=== PATIENT | female | born 1985 | race Caucasian/White ===

== ENCOUNTER 2023-11-20 18:27 | Emergency (ER) | payer OTHER ==
--- OUTSIDE RECORDS SUMMARY | 2023-11-20 18:30 | XMS REPORT | Continuity of Care Document ---
Author Name Unknown Address [address] [place] [address] thconnect Address [address] [place] [address] Care Team Providers Care Concession Worker Name Role Phone [email or web address] Attending Clinician Unavaila ble [email or web address] Admitting Clinician Unavaila ble Encounters Start Date/Time End Date/Time Encounter Type Admission Type Attending Clinicians Care Facility Care Department Encounter ID Source 2023-02-12 00:00:00 2023-02-12 00:00:00 Outpatient [email or web address] [facility] [id number] [facility]
[2023-11-20] MEDS ORDERED: FAMOTIDINE 20 MG/2 ML VIAL IV ONE (18:38)
[2023-11-20] MEDS ORDERED: NA CHLORIDE 0.9% 1,000 ML ONE (18:38)
[2023-11-20] MEDS ORDERED: ONDANSETRON 4 MG/2 ML VIAL ONE (18:38)
[2023-11-20 19:06] LABS: Absolute Eosinophils 0.1 K/uL (0-0.5); Absolute Lymphocytes (CBC) 0.8 K/uL (0.7-4.9); Absolute Monocytes 0.7 K/uL (0.1-1.3); Absolute Neutrophil 16.4 K/uL (1.8-8.0); Basophils % 0.3 % (0-1.3); Eosinophils % 0.5 % (0-4.4); Hemoglobin 12.4 g/dL (12.0-15.0); Lymphocytes % 4.3 % (15.3-44.8); MCH 26.9 pg (27.0-35.0); MCHC 32.7 g/dL (32.0-36.0); MCV 82.2 fL (80-100); MPV 7.6 fL (7.6-11.3); Monocytes % 3.7 % (3.3-12.3); Neutrophils % 91.2 % (41.7-73.7); Nucleated Red Blood Cells % 0.1 % (0-0); Platelets 336 thou/uL (152-406); RBC Red Blood Cell Count 4.63 M/uL (3.86-4.86); Red Cell Distribution Width 13.6 % (12.1-15.2)
--- NOTE | 2023-11-20 19:10 | RAD REPORT ---
EXAM DESCRIPTION: RAD - Chest Single View - 11/20/2023 6:56 pm CLINICAL HISTORY: nausea/vomiting Chest pain. COMPARISON: <Comparisons> FINDINGS: Portable technique limits examination quality. The lungs are grossly clear. The heart is normal in size. No displaced fractures. IMPRESSION: No acute intrathoracic process suspected.
[2023-11-20 19:35] LABS: Albumin 3.4 g/dL (3.4-5.0); Albumin/Globulin Ratio 0.9 (1.1-1.8); Anion Gap 14.4 mEq/L (5.0-15.0); Bilirubin Direct 0.2 mg/dL (0-0.2); Bilirubin Indirect, Calculated 0.6 mg/dL (0.2-0.8); Bilirubin Total 0.8 mg/dL (0.2-1.0); Globulin 3.9 g/dL (2.3-3.5); Magnesium 1.2 mg/dL (1.6-2.4); Potassium 3.4 mEq/L (3.5-5.1); Protein, Total 7.3 g/dL (6.4-8.2); Troponin High Sensitivity 13.5 pg/mL (<58.9)
[2023-11-20 19:55] LABS: Blood Morphology Comment NOT SEEN (NOT SEEN); Platelet Estimate ADEQ; White Blood Cell Scan OK (OK)
[2023-11-20] MEDS ORDERED: POTASSIUM 25 MEQ EFFERV TAB ONE (20:01)
[2023-11-20] MEDS ORDERED: Magnesium Sulfate 2gm IVPB 2 G/50 ML BAG IV ONE (20:01)
--- NOTE | 2023-11-20 21:23 | EDPHYS ---
Physician Documentation [facility] Name: Mita Ashby Age: 38 yrs Sex: Female : 1985 Arrival Date: 11/20/2023 Time: 18:27 Bed 6 Private MD: ED Physician Greg Herrera HPI: 11/19 18:35 This 38 yrs old Female presents to ER via EMS with complaints of Nausea/Vomiting. cp 18:35 The patient presents to the emergency department with nausea, vomiting. cp 18:35 Onset: The symptoms/episode began/occurred today. cp 18:35 Possible causes: antibiotics, Augmentin. Associated signs and symptoms: Pertinent cp negatives: abdominal pain, GI bleeding. 18:35 Severity of symptoms: in the emergency department the symptoms are unchanged despite cp EMS interventions. 18:35 EMS reports patient with low blood pressure upon initial assessment, IV started with cp intravenous fluids. 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 - Infectious Disease History:: Denies. - Social history:: Smoking status: Patient denies any tobacco usage or history of. ROS: 18:40 Constitutional: Negative for chills, fever, cp 18:40 Eyes: Negative for injury, pain, redness, and discharge, cp 18:40 Cardiovascular: Negative for chest pain, 18:40 Respiratory: Negative for cough, shortness of breath, wheezing, 18:40 Abdomen/GI: Positive for nausea and vomiting, Negative for abdominal pain, diarrhea, constipation, hematemesis, 18:40 : Negative for urinary symptoms, 18:40 Neuro: Negative for altered mental status, dizziness, headache, loss of consciousness, cp syncope, weakness, 18:40 All other systems are negative, cp Exam: 18:45 Constitutional: The patient appears in no acute distress, alert, awake, cp non-diaphoretic, non-toxic, well developed, well nourished, uncomfortable, 18:45 Head/Face: Normocephalic, atraumatic. cp 18:45 Eyes: Periorbital structures: appear normal, Conjunctiva: normal, no exudate, no injection, Sclera: no appreciated abnormality, 18:45 ENT: External ear(s): are unremarkable, Nose: is normal, Mouth: Lips: moist, Oral mucosa: moist, Posterior pharynx: Airway: no evidence of obstruction, patent, 18:45 Neck: ROM/movement: is normal, is supple, without pain, no range of motions limitations, no meningismus, no nuchal rigidity, 18:45 Chest/axilla: Inspection: normal, 18:45 Cardiovascular: Rate: normal, Rhythm: regular, 18:45 Respiratory: the patient does not display signs of respiratory distress, Respirations: normal, no use of accessory muscles, no retractions, labored breathing, is not present, Breath sounds: are clear throughout, no decreased breath sounds, no stridor, no wheezing, 18:45 Abdomen/GI: Inspection: abdomen appears normal, Bowel sounds: active, all quadrants, Palpation: soft, in all quadrants, nontender, in all quadrants, 18:45 Back: pain, is absent, ROM is normal, 18:45 Neuro: Orientation: to person, place \T\ time. Mentation: is normal, Cerebellar function: is grossly normal, Motor: moves all fours, strength is normal, Sensation: no obvious gross deficits, 19:01 ECG was reviewed by the Attending Physician. cp Vital Signs: 18:31 BP 106 / 95; Pulse 88; Resp 18; Temp 98.3(O); Pulse Ox 100% on R/A; Height 5 ft. 5 in. ld1 ; Pain 0/10; 18:31 Weight 90.72 kg; ld1 18:46 BP 114 / 86; Pulse 87; Resp 18; Pulse Ox 100% on R/A; ld1 20:48 BP 114 / 76; Pulse 79; Pulse Ox 100% on R/A; Pain 0/10; tm6 21:31 BP 109 / 76; Pulse 74; Resp 17; Temp 98.3; Pulse Ox 99% ; Pain 0/10; bm8 18:31 Pain Scale: Adult ld1 20:48 Pain Scale: Adult tm6 21:31 Pain Scale: Adult bm8 Hartman Coma Score: 21:31 Eye Response: spontaneous(4). Motor Response: obeys commands(6). Verbal Response: bm8 oriented(5). Total: 15. MDM: 18:32 Patient medically screened. cp 21:22 Data reviewed: vital signs, nurses notes, lab test result(s), EKG, radiologic studies, cp plain films, and as a result, I will discharge patient. 21:22 Differential diagnosis: Nonspecific abd pain, gastritis, cholecystitis, pancreatitis, cp diverticulitis, viral gastroenteritis, gastroenteritis. I considered the following discharge prescriptions or medication management in the emergency department Medications were administered in the Emergency Department. See MAR. Independent interpretation of the following test(s) in the Emergency Department EKG: See my EKG interpretation above. Test considered but Not performed: CT: abdomen/pelvis. Care significantly affected by the following chronic conditions: Diabetes. Counseling: I had a detailed discussion with the patient and/or guardian regarding the historical points, exam findings, and any diagnostic results supporting the discharge/admit diagnosis, lab results, radiology results, to return to the emergency department if symptoms worsen or persist or if there are any questions or concerns that arise at home. Response to treatment: the patient's symptoms have markedly improved after treatment, and as a result, I will discharge patient. 11/19 18:33 Order name: Basic Metabolic Panel; Complete Time: 19:55 cp 11/19 19:55 Interpretation: Normal except: K 3.4; GLUC 219. cp 11/19 18:33 Order name: CBC with Diff; Complete Time: 19:58 cp 11/19 19:55 Interpretation: Normal except: WBC 18.00; MCH 26.9; XIAO% 91.2; LYM% 4.3; NEUT A 16.4. cp 11/19 18:33 Order name: LFT's; Complete Time: 19:55 cp 11/19 18:33 Order name: Magnesium; Complete Time: 19:55 cp 11/19 18:33 Order name: Troponin HS; Complete Time: 19:55 cp 11/19 18:33 Order name: Lipase; Complete Time: 19:55 cp 11/19 19:56 Order name: CBC Smear Scan; Complete Time: 19:58 EDMS 11/19 18:33 Order name: XRAY Chest (1 view); Complete Time: 19:55 cp 11/19 18:33 Order name: Cardiac monitoring; Complete Time: 18:35 cp 11/19 18:33 Order name: EKG - Nurse/Tech; Complete Time: 18:53 cp 11/19 18:33 Order name: IV Saline Lock; Complete Time: 18:35 cp 08 18:33 Order name: Labs collected and sent; Complete Time: 18:52 cp 0808 18:33 Order name: O2 Per Protocol; Complete Time: 18:35 cp 08 18:33 Order name: O2 Sat Monitoring; Complete Time: 18:35 cp 0808 20:55 Order name: PO challenge; Complete Time: 20:56 cp EC:01 Rate is 91 beats/min. Rhythm is regular. OH interval is normal. QRS interval is normal. cp QT interval is normal. T waves are Inverted in leads III, aVR. Interpreted by me. Reviewed by me. Administered Medications: 18:45 Drug: NS 0.9% IV 1000 ml IV at 1 bolus Per protocol; 1000 mL bolus Route: IV; Rate: 1 ld1 bolus; Site: right antecubital; 18:53 Follow up: Response: No adverse reaction; IV Status: Infusion continued ld1 18:45 Drug: Ondansetron IVP 4 mg IVP once; over 2 minutes Route: IVP; Site: right antecubital;ld1 18:53 Follow up: Response: No adverse reaction; Vomiting decreased ld1 18:45 Drug: Famotidine IVP 20 mg IVP once; dilute with 10 mL 0.9% NaCl; give over 2 minutes ld1 Route: IVP; Site: right antecubital; 18:53 Follow up: Response: No adverse reaction ld1 20:16 Drug: Magnesium Sulfate IVPB 2 grams IVPB once over 2 hrs Route: IVPB; Infused Over: 2 bm8 hrs; Site: right antecubital; 21:29 Follow up: Response: No adverse reaction; IV Status: Completed infusion; IV Intake: [id number] 20:16 Drug: Potassium PO Effervescent Tablet 25 mEq PO once; dissolve in 4 ounces of water or bm8 juice Route: PO; 21:29 Follow up: Response: No adverse reaction bm8 Disposition Summary: 11/20/23 21:23 Discharge Ordered Notes: Location: Home cp Problem: new cp Symptoms: have improved cp Condition: Stable cp Diagnosis - Nausea with vomiting, unspecified cp - Hypomagnesemia cp - Hypokalemia cp - Elevated white blood cell count, unspecified cp Followup: cp - With: Private Physician - When: 1 - 2 days - Reason: Worsening of condition Discharge Instructions: - Discharge Summary Sheet cp - Potassium Content of Foods cp - Hypomagnesemia cp - Nausea and Vomiting, Adult cp - Hypokalemia cp Forms: - Medication Reconciliation Form cp - Antibiotic Education cp - Prescription Opioid Use cp - Patient Portal Instructions cp - Leadership Thank You Letter cp Prescriptions: - Cephalexin 500 mg Oral Capsule - take 1 capsule ORAL route every 8 hours for 10 days; 30 capsule; Refills: 0, cp Product Selection Permitted - Zofran 4 mg Oral Tablet - take 1 tablet ORAL route every 12 hours As needed; 20 tablet; Refills: 0, cp Product Selection Permitted Signatures: Dispatcher [employer] EDMS Fercho Garduno PA PA cp Leighann Banuelos, RN RN ld1 Curt Samson, RN RN bm8 Corrections: (The following items were deleted from the chart) 18:34 18:34 BASIC METABOLIC PANEL+C.LAB.BRZ ordered. EDMS EDMS 18:34 18:34 CBC+H.LAB.BRZ ordered. EDMS EDMS 18:34 18:34 HEPATIC FUNCTION+C.LAB.BRZ ordered. EDMS EDMS 18:34 18:34 MAGNESIUM+C.LAB.BRZ ordered. EDMS EDMS 18:34 18:34 Troponin High Sensitivity+C.LAB.BRZ ordered. EDMS EDMS 18:34 18:34 LIPASE+C.LAB.BRZ ordered. EDMS EDMS 18:34 18:34 Chest Single View+RAD.RAD.BRZ ordered. EDMS EDMS
--- NOTE | 2023-11-20 21:23 | ER ---
Nurse's Notes [facility] Name: Mita Ashby Age: 38 yrs Sex: Female : 1985 Arrival Date: 11/20/2023 Time: 18:27 Bed 6 Private MD: Diagnosis: Nausea with vomiting, unspecified;Hypomagnesemia;Hypokalemia;Elevated white blood cell count, unspecified Presentation: 11/19 18:31 Chief complaint: EMS states: Toned out to patient home. Pt reports N/V X 4 hours. ld1 Denies ABD pain. Reports having sty to eye - took new oral antibiotic today. Coronavirus screen: At this time, the client does not indicate any symptoms associated with coronavirus-19. Ebola Screen: No symptoms or risks identified at this time. Initial Sepsis Screen: Does the patient meet any 2 criteria? RR > 20 per min. Does the patient have a suspected source of infection? No. Patient's initial sepsis screen is negative. Risk Assessment: Do you want to hurt yourself or someone else? Patient reports no desire to harm self or others. Onset of symptoms was November 20, 2023. 18:31 Method Of Arrival: EMS: [facility] ld1 18:31 Acuity: STACIA 3 ld1 Triage Assessment: 18:33 General: Appears in no apparent distress. comfortable, Behavior is calm, cooperative, ld1 appropriate for age. Pain: Denies pain. EENT: No signs and/or symptoms were reported regarding the EENT system. Neuro: Level of Consciousness is awake, alert, obeys commands, Oriented to person, place, time, situation, Appropriate for age. Cardiovascular: Capillary refill < 3 seconds Patient's skin is warm and dry. Respiratory: Airway is patent Respiratory effort is even, unlabored. GI: Abdomen is round non-distended, Reports nausea, vomiting. : No signs and/or symptoms were reported regarding the genitourinary system. Derm: No signs and/or symptoms reported regarding the dermatologic system. Musculoskeletal: No signs and/or symptoms reported regarding the musculoskeletal system. 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 - Infectious Disease History:: Denies. - Social history:: Smoking status: Patient denies any tobacco usage or history of. Screenin:34 [facility] ED Fall Risk Assessment (Adult) History of falling in the last 3 months, ld1 including since admission No falls in past 3 months (0 pts) Confusion or Disorientation No (0 pts) Intoxicated or Sedated No (0 pts) Impaired Gait No (0 pts) Mobility Assist Device Used No (0 pt) Altered Elimination No (0 pt) Score/Fall Risk Level 0 - 2 = Low Risk Oriented to surroundings, Maintained a safe environment, Educated pt \T\ family on fall prevention, incl call for assistance when getting out of bed, Assessed \T\ reinforced patient's understanding of fall precautions, Provided non-skid footwear, Hourly rounding (assess needs \T\ fall precautionary measures) done, Used ambulatory aids as needed (educated on \T\ assisted with), Used gait belt as appropriate. Abuse screen: Denies threats or abuse. Has been threatened or abused. Nutritional screening: No deficits noted. Tuberculosis screening: No symptoms or risk factors identified. Assessment: 18:34 Reassessment: See triage assessment. ld1 20:48 Reassessment: Patient and/or family updated on plan of care and expected duration. Pain tm6 level reassessed. Patient is alert, oriented x 3, equal unlabored respirations, skin warm/dry/pink. 21:31 Reassessment: Patient appears in no apparent distress at this time. Patient and/or bm8 family updated on plan of care and expected duration. Pain level reassessed. Patient is alert, oriented x 3, equal unlabored respirations, skin warm/dry/pink. Patient denies pain at this time. Patient states feeling better. Patient states symptoms have improved. GI: No deficits noted. Abdomen is flat, non-distended, Patient currently denies abdominal pain, nausea, pain, vomiting. Vital Signs: 18:31 BP 106 / 95; Pulse 88; Resp 18; Temp 98.3(O); Pulse Ox 100% on R/A; Height 5 ft. 5 in. ld1 ; Pain 0/10; 18:31 Weight 90.72 kg; ld1 18:46 BP 114 / 86; Pulse 87; Resp 18; Pulse Ox 100% on R/A; ld1 20:48 BP 114 / 76; Pulse 79; Pulse Ox 100% on R/A; Pain 0/10; tm6 21:31 BP 109 / 76; Pulse 74; Resp 17; Temp 98.3; Pulse Ox 99% ; Pain 0/10; bm8 18:31 Pain Scale: Adult ld1 20:48 Pain Scale: Adult tm6 21:31 Pain Scale: Adult bm8 Jeramie Coma Score: 21:31 Eye Response: spontaneous(4). Motor Response: obeys commands(6). Verbal Response: bm8 oriented(5). Total: 15. ED Course: 18:31 Patient arrived in ED. ld1 18:31 Fercho Garduno PA is PHCP. cp 18:31 Greg Herrera MD is Attending Physician. cp 18:33 Triage completed. ld1 18:33 Arm band placed on right wrist. ld1 18:34 Patient has correct armband on for positive identification. Placed in gown. Bed in low ld1 position. Call light in reach. Side rails up X2. awake overnight monitor on. Pulse ox on. NIBP on. Door closed. Noise minimized. Warm blanket given. 18:34 No provider procedures requiring assistance completed. Maintain EMS IV. Dressing ld1 intact. Good blood return noted. Site clean \T\ dry. Gauge \T\ site: 18G RAC. 18:40 Jose Flowers, RN is Primary Nurse. rs5 18:58 XRAY Chest (1 view) In Process Unspecified. EDMS 21:31 Provided Education on: post er care. bm8 21:31 IV discontinued, intact, bleeding controlled, No redness/swelling at site. Pressure bm8 dressing applied. Administered Medications: 18:45 Drug: NS 0.9% IV 1000 ml IV at 1 bolus Per protocol; 1000 mL bolus Route: IV; Rate: 1 ld1 bolus; Site: right antecubital; 18:53 Follow up: Response: No adverse reaction; IV Status: Infusion continued ld1 18:45 Drug: Ondansetron IVP 4 mg IVP once; over 2 minutes Route: IVP; Site: right antecubital;ld1 18:53 Follow up: Response: No adverse reaction; Vomiting decreased ld1 18:45 Drug: Famotidine IVP 20 mg IVP once; dilute with 10 mL 0.9% NaCl; give over 2 minutes ld1 Route: IVP; Site: right antecubital; 18:53 Follow up: Response: No adverse reaction ld1 20:16 Drug: Magnesium Sulfate IVPB 2 grams IVPB once over 2 hrs Route: IVPB; Infused Over: 2 bm8 hrs; Site: right antecubital; 21:29 Follow up: Response: No adverse reaction; IV Status: Completed infusion; IV Intake: [id number] 20:16 Drug: Potassium PO Effervescent Tablet 25 mEq PO once; dissolve in 4 ounces of water or bm8 juice Route: PO; 21:29 Follow up: Response: No adverse reaction bm8 Medication: 18:34 VIS not applicable for this client. ld1 Intake: 21:29 IV: 50ml; Total: 50ml. bm8 Outcome: 21:23 Discharge ordered by MD. cp 21:31 Discharged to home ambulatory, bm8 21:31 Condition: stable 21:31 Discharge instructions given to patient, family, Instructed on discharge instructions, follow up and referral plans. medication usage, safety practices, Demonstrated understanding of instructions, follow-up care, medications, Prescriptions given X 2, 21:34 Patient left the ED. bm8 Signatures: Dispatcher [employer] EDMS Fercho Garduno PA PA cp Sims, Lauren, RN RN ld1 Jose Flowers, RN RN rs5 Sid Almanzar RN RN tm6 Curt Samsno RN RN bm8
[2023-11-20 21:42] VITALS: TEMP 98.3
[2023-11-20 21:46] VITALS: BP 109/76; O2SAT 99
--- NOTE | 2023-11-21 14:07 | EKG ---
Test Date: 2023-11-20 Test Time: 18:57:42 Plane Tender: TOMMY MEASUREMENT RESULTS: Intervals: Rate: 91 OR: 172 QRSD: 86 QT: 378 QTc: 464 [place]: P: -19 OR: 172 QRS: 112 T: -29 INTERPRETIVE STATEMENTS: Normal sinus rhythm Right axis deviation Nonspecific T wave abnormality Prolonged QT Abnormal ECG No previous ECG available for comparison Electronically Signed On 11-21-23 14:05:25 CDT by Reynold Florentino
== END 2023-11-20 21:34 | disposition home or self-care (01) ==
LOC: ER 18:27
DX: E83.42 Hypomagnesemia (principal); E87.6 Hypokalemia; D72.829 Elevated white blood cell count, unspecified; E11.9 Type 2 diabetes mellitus without complications
CPT/HCPCS: 96365; 93005; 85025; 80048; 36415; 83735; 80076; 84484; 83690; 71045; 96375; 99285; J3475; J2405; J7030